=== PATIENT | male | born 1990 | race Two or more races ===

== ENCOUNTER 2019-08-21 09:59 | Emergency (ER) | payer OTHER ==
[~2019-08-21] VITALS: Ht 185.4 cm; Wt 130.6 kg
[2019-08-21 10:15] VITALS: BP 131/81
[2019-08-21] MEDS ORDERED: KETOROLAC 60 MG/2 ML VIAL IM ONE ×2 (10:20)
--- NOTE | 2019-08-21 10:23 | NUR ---
29 Y/O M BIB SELF C/C [facility] HEAD [facility] RADIATING TO LEFT EYE PAIN 8/10 X 4 DAYS. PER PT WORK INJURY WOOD FELL ON HEAD AND PT WITH NO HARD HAT. NO LOC OR N/V. PUPILS PERRLA IN TRIAGE. ALLERGIES MUCINEX NO HX,RX NO N/V/D. DIZZINESS X1 DAY. SKIN IS PINK/WARM/DRY; AAOX4 WITH EVEN AND STEADY GAIT. PATIENT STATES PAIN OF 8/10 AT THIS TIME. PATIENT POSITIONED FOR COMFORT; HOB ELEVATED; BEDRAILS UP X1; BED DOWN. ER MD MADE AWARE OF PT STATUS.
[2019-08-21 12:44] VITALS: BP 125/71
== END 2019-08-21 12:43 | disposition home or self-care (01) ==
LOC: MED 09:59
DX: S09.90XA Unspecified injury of head, initial encounter (principal); Z88.8 Allergy status to other drugs, medicaments and biological substances; W22.8XXA Striking against or struck by other objects, initial encounter; Y93.89 Activity, other specified; Y92.89 Other specified places as the place of occurrence of the external cause; Y99.8 Other external cause status
CPT/HCPCS: 96372; 99283; J1885